=== PATIENT | female | born 1985 | race Caucasian/White ===

== ENCOUNTER 2017-05-31 16:49 | Emergency (ER) | payer MEDICAID ==
[2017-05-31 17:09] VITALS: BP 124/95
--- NOTE | 2017-05-31 18:41 | EDM.PDOC ---
ED HPI GENERAL MEDICAL PROBLEM - General Chief Complaint: General Stated Complaint: COUGH,CONGESTION,FREQUENT URINATION Time Seen by Provider: 05/31/17 16:55 Source of Information: Reports: Patient History Limitations: Reports: No Limitations - History of Present Illness INITIAL COMMENTS - FREE TEXT/NARRATIVE: The patient presents with cough, congestion, runny nose, fever, chills, and some dysuria. This started a few days ago. She has a daughter that is also sick. She has no chest pain, shortness of breath, nausea, vomiting, diarrhea or abdominal pain. She also has frequency of urination. Onset: Gradual Duration: Day(s): (3) Severity: Moderate Improves with: Reports: None Worsens with: Reports: None Associated Symptoms: Reports: Cough, Fever/Chills. 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: Reports: Concussion - Past Surgical History Neurological Surgical History: Reports: None Social & Family History - Family History Family Medical History: Noncontributory - Tobacco Use Smoking Status *Q: Never Smoker Years of Tobacco use: 10 Used Tobacco, but Quit: Yes Month Tobacco Last Used: unknown - Caffeine Use Caffeine Use: Reports: None - Alcohol Use Days Per Week of Alcohol Use: 0 - Recreational Drug Use Recreational Drug Use: No ED ROS GENERAL - Review of Systems Review Of Systems: See Below Constitutional: Reports: Fever, Chills HEENT: Reports: Other (Congestion and runny nose) Respiratory: Reports: Cough Cardiovascular: Reports: No Symptoms Endocrine: Reports: No Symptoms GI/Abdominal: Reports: No Symptoms : Reports: Dysuria, Frequency Musculoskeletal: Reports: No Symptoms ED EXAM, GENERAL - Physical Exam Exam: See Below Exam Limited By: No Limitations General Appearance: Alert, No Apparent Distress Ears: Normal External Exam Nose: Normal Inspection Throat/Mouth: Normal Inspection Head: Atraumatic, Normocephalic Neck: Normal Inspection Respiratory/Chest: No Respiratory Distress, Lungs Clear, Normal Breath Sounds Cardiovascular: Regular Rate, Rhythm, No Edema, No Murmur GI/Abdominal: Soft, Non-Tender, No Organomegaly, No Mass Back Exam: Normal Inspection Extremities: Normal Inspection Course - Vital Signs Last Recorded V/S: Last Vital Signs Temp 97.3 F 05/31/17 17:05 Pulse 108 H 05/31/17 17:05 Resp 16 05/31/17 17:05 BP 124/95 H 05/31/17 17:05 Pulse Ox 98 05/31/17 17:05 - Orders/Labs/Meds Labs: Laboratory Tests 05/31/17 Range/Units 17:54 Urine Color Yellow (Yellow) Urine Appearance Clear (Clear) Urine pH 6.0 (5.0-8.0) Ur Specific [place] 1.015 (1.005-1.030) Urine Protein Negative (Negative) Urine Glucose (UA) Negative (Negative) Urine Ketones 2+ H (Negative) Urine Occult Blood Negative (Negative) Urine Nitrite Negative (Negative) Urine Bilirubin Negative (Negative) Urine Urobilinogen 0.2 (0.2-1.0) Ur Leukocyte Esterase Trace H (Negative) Urine RBC 0-5 (0-5) /hpf Urine WBC 0-5 (0-5) /hpf Urine WBC Clumps Rare (NOT SEEN) /hpf Ur Epithelial Cells 0-5 (0-5) /hpf Urine Bacteria Few (FEW) /hpf Urine Mucus Not seen (FEW) /hpf - Re-Assessments/Exams Free Text/Narrative Re-Assessment/Exam: 05/31/17 19:05 Her influenza was negative. Her UA shows no UTI. I will discharge her home. Departure - Departure Time of Disposition: 19:10 Disposition: Home, Self-Care 01 Condition: Good Clinical Impression: Viral upper respiratory infection, Dysuria - Discharge Information Referrals: PCP,None [Primary Care Provider] - Alla Hartmann MD [Physician] - 1 Week Forms: ED Department Discharge Additional Instructions: Drink plenty of fluids. Take tylenol or motrin for fever or pain. You may also use some over the counter cold medicine. Please return if you are worse or follow up with Dr Queen.
== END 2017-05-31 19:10 | disposition home or self-care (01) ==
LOC: JD.ED 16:49
DX: J06.9 Acute upper respiratory infection, unspecified (principal); R30.0 Dysuria; Z79.899 Other long term (current) drug therapy; Z87.891 Personal history of nicotine dependence
CPT/HCPCS: 81001; 87804; 99282; 99283

== ENCOUNTER 2017-08-11 14:37 | Emergency (ER) | payer MEDICAID ==
[2017-08-11 14:57] VITALS: BP 138/102
[2017-08-11] MEDS ORDERED: Ondansetron 4 MG/2 ML SDV IVPUSH ONE (15:30)
[2017-08-11] MEDS ORDERED: Sodium Chloride 0.9% 1,000 ML IV ONE (15:30)
[2017-08-11] MEDS ORDERED: Sodium Chloride 0.9% 10 ML Syringe FLUSH PRN ×2 (15:30→19:31)
[2017-08-11] MEDS ORDERED: LORazepam 2 MG/ML SDV IVPUSH ONE (15:31)
--- NOTE | 2017-08-11 15:37 | EDM.PDOC ---
ED HPI GENERAL MEDICAL PROBLEM - General Chief Complaint: Genitourinary Problem Stated Complaint: LOW BACK PAIN/VERTIGO/NAUSEA Time Seen by Provider: 08/11/17 15:07 Source of Information: Reports: Patient History Limitations: Reports: No Limitations - History of Present Illness INITIAL COMMENTS - FREE TEXT/NARRATIVE: Patient is a 31-year-old female with a history of traumatic brain injury presents to the ED complaining of worsening dizziness with nausea and vomiting that started approximately 1:00 this morning. Patient awoke dizzy described as quite severe with nausea and vomiting. She has not been able to keep any foods or liquids down up until approximately 2 hours ago. In addition developed pain to the right low back described as sharp in nature that radiates to the front. Has difficulty in getting comfortable at times. Pain does wax and wane in intensity. There has been no recent fall or activity precipitating this. She has no history of kidney stones or gallbladder issues. There is no pain with urination. Nor has there been documented fever. She denies being and is currently on control. States she had a May of 2017. Up until recently she's been doing well. Of note there is another family member/ friends with similar symptoms that resolved. She's had no diarrhea or blood in her stool. history includes 1 para 1 miscarriage 0 abortions 2. Additional past medical history includes traumatic brain injury with migraines and persistent dizziness Current medications include meclizine and control. 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 - Past Surgical History Neurological Surgical History: Reports: None Social & Family History - Family History Family Medical History: Noncontributory - Tobacco Use Smoking Status *Q: Never Smoker Years of Tobacco use: 10 Used Tobacco, but Quit: Yes Month/Year Tobacco Last Used: unknown - Caffeine Use Caffeine Use: Reports: None - Alcohol Use Days Per Week of Alcohol Use: 0 - Recreational Drug Use Recreational Drug Use: Yes Drug Use in Last 12 Months: Yes Recreational Drug Type: Reports: Marijuana/Hashish ED ROS GENERAL - Review of Systems Review Of Systems: See Below Constitutional: Reports: Decreased Appetite. Denies: Fever, Chills HEENT: Reports: Vertigo. Denies: Ear Pain, Eye Pain, Nosebleed, Sinus Problem, Throat Pain, Throat Swelling, Vision Change Respiratory: Denies: Shortness of Breath, Wheezing, Pleuritic Chest Pain, Cough , Sputum, Hemoptysis Cardiovascular: Reports: No Symptoms GI/Abdominal: Reports: Abdominal Pain, Decreased Appetite, Nausea, Vomiting. Denies: Black Stool, Bloody Stool, Constipation, Diarrhea, Hematemesis, Hematochezia, Melena : Reports: Flank Pain (Right-sided). Denies: Discharge, Dysuria, Frequency, Hematuria, Pain, Urgency, Urinary Retention Musculoskeletal: Reports: Back Pain (Low right sided back pain) Skin: Reports: No Symptoms Neurological: Reports: Dizziness (Chronic with worsening symptoms as of late). Denies: Confusion, Headache, Numbness, Pre-Existing Deficit, Seizure, Syncope, Tingling, Difficulty Walking, Weakness Psychiatric: Denies: Anxiety ED EXAM, GI/ABD - Physical Exam Exam: See Below Exam Limited By: No Limitations General Appearance: Alert, WD/WN, No Apparent Distress Eyes: Bilateral: Normal Appearance, EOMI, Nystagmus (Mild horizontal bilaterally no vertical) Ears: Normal External Exam, Normal Canal, Hearing Grossly Normal, Normal TMs Nose: Normal Inspection, Normal Mucosa Throat/Mouth: Normal Inspection, Normal Oropharynx, Normal Voice, No Airway Compromise Head: Atraumatic, Normocephalic Neck: Normal Inspection, Supple, Non-Tender, Full Range of Motion. No: Lymphadenopathy (L), Lymphadenopathy (R) Respiratory/Chest: No Respiratory Distress, Lungs Clear, Normal Breath Sounds, Chest Non-Tender Cardiovascular: Normal Peripheral Pulses, Regular Rate, Rhythm, No Murmur GI/Abdominal Exam: Normal Bowel Sounds, Soft, Non-Tender, No Organomegaly, No Distention Back Exam: Normal Inspection, Other (Right lower back discomfort radiates to the right flank.). No: Paraspinal Tenderness, Vertebral Tenderness Neurological: Alert, Oriented, CN II-XII Intact, Normal Cognition, No Motor/ Sensory Deficits Psychiatric: Normal Affect, Normal Mood Skin Exam: Warm, Dry, Intact, Normal Color, No Rash Course - Vital Signs Last Recorded V/S: Last Vital Signs Temp 97.7 F 08/11/17 14:52 Pulse 106 H 08/11/17 14:52 Resp 17 08/11/17 14:52 BP 138/102 H 08/11/17 14:52 Pulse Ox 100 08/11/17 14:52 - Orders/Labs/Meds Orders: Active Orders 24 hr Category Date Time Status Peripheral IV Care [RC] . DIRECTED Care 08/11/17 15:30 Active HCG QUALITATIVE,URINE [URCHEM] Stat Lab 08/11/17 16:35 Ordered UA W/MICROSCOPIC [URIN] Stat Lab 08/11/17 16:35 Ordered Peripheral IV Insertion Adult [OM.PC] Routine Oth 08/11/17 15:30 Ordered Labs: Laboratory Tests 08/11/17 08/11/17 08/11/17 Range/Units 15:45 15:45 15:45 WBC 6.34 (3.98-10.04) K/mm3 RBC 4.76 (3.98-5.22) M/mm3 Hgb 14.2 (11.2-15.7) gm/L Hct 42.6 (34.1-44.9) % MCV 89.5 (79.4-94.8) fl MCH 29.8 (25.6-32.2) pg MCHC 33.3 (32.2-35.5) g/dl RDW Std Deviation 44.4 (36.4-46.3) fL Plt Count 221 (182-369) K/mm3 MPV 10.4 (9.4-12.3) fl Neut % (Auto) 86.5 H (34.0-71.1) % Lymph % (Auto) 8.7 L (19.3-51.7) % [place] % (Auto) 4.4 L (4.7-12.5) % Eos % (Auto) 0.2 L (0.7-5.8) Baso % (Auto) 0.2 (0.1-1.2) % Neut # (Auto) 5.49 (1.56-6.13) K/mm3 Lymph # (Auto) 0.55 L (1.18-3.74) K/mm3 [place] # (Auto) 0.28 (0.24-0.36) K/mm3 Eos # (Auto) 0.01 L (0.04-0.36) K/mm3 Baso # (Auto) 0.01 (0.01-0.08) K/mm3 Manual Slide Review Normal smear Sodium 139 (136-145) mEq/L Potassium 3.0 L (3.5-5.1) mEq/L Chloride 101 (98-107) mEq/L Carbon Dioxide 28 (21-32) mEq/L Anion Gap 13.0 (5-15) BUN 12 (7-18) mg/dL Creatinine 0.6 (0.55-1.02) mg/dL Est Cr Clr Drug Dosing 119.47 mL/min Estimated GFR (MDRD) > 60 (>60) mL/min BUN/Creatinine Ratio 20.0 H (14-18) Glucose 92 (74-106) mg/dL Calcium 8.7 (8.5-10.1) mg/dL Total Bilirubin 0.7 (0.2-1.0) mg/dL AST 30 (15-37) U/L ALT 50 (14-59) U/L Alkaline Phosphatase 42 L (46-116) U/L C-Reactive Protein 3.0 H* (<1.0) mg/dL Total Protein 7.1 (6.4-8.2) g/dl Albumin 4.1 (3.4-5.0) g/dl Globulin 3.0 gm/dL Albumin/Globulin Ratio 1.4 (1-2) HCG, Qual Negative (NEGATIVE) Urine Color (Yellow) Urine Appearance (Clear) Urine pH (5.0-8.0) Ur Specific [place] (1.005-1.030) Urine Protein (Negative) Urine Glucose (UA) (Negative) Urine Ketones (Negative) Urine Occult Blood (Negative) Urine Nitrite (Negative) Urine Bilirubin (Negative) Urine Urobilinogen (0.2-1.0) Ur Leukocyte Esterase (Negative) Urine RBC (0-5) /hpf Urine WBC (0-5) /hpf Ur Epithelial Cells (0-5) /hpf Urine Bacteria (FEW) /hpf Urine Mucus (FEW) /hpf Urine HCG, Qual (NEGATIVE) 04/19/18 04/19/18 Range/Units 16:35 16:35 WBC (3.98-10.04) K/mm3 RBC (3.98-5.22) M/mm3 Hgb (11.2-15.7) gm/L Hct (34.1-44.9) % MCV (79.4-94.8) fl MCH (25.6-32.2) pg MCHC (32.2-35.5) g/dl RDW Std Deviation (36.4-46.3) fL Plt Count (182-369) K/mm3 MPV (9.4-12.3) fl Neut % (Auto) (34.0-71.1) % Lymph % (Auto) (19.3-51.7) % [place] % (Auto) (4.7-12.5) % Eos % (Auto) (0.7-5.8) Baso % (Auto) (0.1-1.2) % Neut # (Auto) (1.56-6.13) K/mm3 Lymph # (Auto) (1.18-3.74) K/mm3 [place] # (Auto) (0.24-0.36) K/mm3 Eos # (Auto) (0.04-0.36) K/mm3 Baso # (Auto) (0.01-0.08) K/mm3 Manual Slide Review Sodium (136-145) mEq/L Potassium (3.5-5.1) mEq/L Chloride (98-107) mEq/L Carbon Dioxide (21-32) mEq/L Anion Gap (5-15) BUN (7-18) mg/dL Creatinine (0.55-1.02) mg/dL Est Cr Clr Drug Dosing mL/min Estimated GFR (MDRD) (>60) mL/min BUN/Creatinine Ratio (14-18) Glucose (74-106) mg/dL Calcium (8.5-10.1) mg/dL Total Bilirubin (0.2-1.0) mg/dL AST (15-37) U/L ALT (14-59) U/L Alkaline Phosphatase (46-116) U/L C-Reactive Protein (<1.0) mg/dL Total Protein (6.4-8.2) g/dl Albumin (3.4-5.0) g/dl Globulin gm/dL Albumin/Globulin Ratio (1-2) HCG, Qual (NEGATIVE) Urine Color Yellow (Yellow) Urine Appearance Clear (Clear) Urine pH 7.0 (5.0-8.0) Ur Specific [place] 1.015 (1.005-1.030) Urine Protein Negative (Negative) Urine Glucose (UA) Negative (Negative) Urine Ketones Negative (Negative) Urine Occult Blood Negative (Negative) Urine Nitrite Negative (Negative) Urine Bilirubin Negative (Negative) Urine Urobilinogen 0.2 (0.2-1.0) Ur Leukocyte Esterase Negative (Negative) Urine RBC 0-5 (0-5) /hpf Urine WBC Not seen (0-5) /hpf Ur Epithelial Cells 10-20 H (0-5) /hpf Urine Bacteria Not seen (FEW) /hpf Urine Mucus Not seen (FEW) /hpf Urine HCG, Qual Negative (NEGATIVE) Meds: Medications Discontinued Medications Generic Name Dose Route Start Last Admin Trade Name Freq PRN Reason Stop Dose Admin Diatrizoate Meglum/Diatrizoate Sod 90 ml 08/11/17 19:31 08/11/17 19:45 Gastrografin 37% PO 08/11/17 19:32 90 ml ONETIME ONE Administration Sodium Chloride 1,000 mls @ 999 mls/hr 08/11/17 15:30 08/11/17 15:52 Normal Saline IV 08/11/17 16:30 999 mls/hr ONETIME ONE Administration Potassium Chloride 10 meq/ 100 mls @ 100 mls/hr 08/11/17 16:44 08/11/17 17:25 Premix IV 08/11/17 17:43 100 mls/hr ASDIRECTED ONE Administration Potassium Chloride 10 meq/ 100 mls @ 100 mls/hr 08/11/17 16:44 08/11/17 18:24 Premix IV 08/11/17 17:43 100 mls/hr ONETIME ONE Administration Sodium Chloride Confirm 08/11/17 17:36 08/11/17 17:38 Normal Saline Administered 08/11/17 17:37 Not Given Dose 1,000 mls @ as directed .ROUTE .STK-MED ONE Sodium Chloride 1,000 mls @ 150 mls/hr 08/11/17 17:45 08/11/17 17:38 Normal Saline IV 150 mls/hr ASDIRECTED [place] Administration Iopamidol 125 ml 08/11/17 19:31 08/11/17 19:45 Isovue-300 (61%) IVPUSH 08/11/17 19:32 125 ml ONETIME ONE Administration Lorazepam 0.5 mg 08/11/17 15:31 08/11/17 15:49 Ativan IVPUSH 08/11/17 15:32 0.5 mg ONETIME ONE Administration Ondansetron HCl 4 mg 08/11/17 15:30 08/11/17 15:48 Zofran IVPUSH 08/11/17 15:31 4 mg ONETIME ONE Administration Potassium Chloride 40 meq 08/11/17 16:43 08/11/17 17:25 Klor-Con M20 PO 08/11/17 16:44 40 meq ONETIME ONE Administration Sodium Chloride 10 ml 08/11/17 15:30 08/11/17 15:45 Saline Flush FLUSH 10 ml ASDIRECTED PRN Administration Keep Vein Open Sodium Chloride 10 ml 08/11/17 19:31 08/11/17 19:46 Saline Flush FLUSH 10 ml ONETIME PRN Administration IV Flush - Re-Assessments/Exams Free Text/Narrative Re-Assessment/Exam: Ordered peripheral IV with normal saline 999 ml per hour, Ativan 0.5 mg IVP, and Zofran 4 mg IVP. Initial labs and studies will include CBC, chem 14, CRP, UA, hCG, and 2 view of the abdomen. Labs reviewed: White blood cell count 6.34, hemoglobin 14.2, platelet count 221 , sodium 139, potassium 3.0, AG 13.0, creatinine 0.6, glucose 92, alk phosphatase 42, CRP 3.0. UA has not been obtained. Cancel urine hCG and ordered serum hCG. Ordered potassium 40 mEq's by mouth and 20 mEq's IV. Will wait for results of hCG and then proceed with CT abdomen and pelvis with IV contrast only. HCG was negative. Discussed results with patient. She is requesting CT Abdomen/ Pelvis. On reevaluation patient has pain to the right flank and along mcburneys point. Ordered CT of the abdomen/pelvis. CT was delayed since oral contrast was not administered in timely fashion causing patient to exceed the 4 hr 28 minute goal for disposition. 08/11/17 20:26 CT abdomen and pelvis impression: Findings which are felt to be incidental as noted above. Nothing acute is appreciated on CT study of the abdomen and pelvis. We'll discharge patient home with instructions as documented. Departure - Departure Time of Disposition: 20:26 Disposition: Home, Self-Care 01 Clinical Impression: Hypokalemia Abdominal pain Qualifiers: Abdominal location: unspecified location Qualified Code(s): R10.9 - Unspecified abdominal pain - Discharge Information Prescriptions: Ondansetron [Zofran ODT] 4 mg PO Q6H PRN #12 tab.dis PRN Reason: Nausea/Vomiting Potassium Chloride [Klor-Con M20] 20 meq PO QAM #30 tab.er Instructions: Hypokalemia, Abdominal Pain, Adult, [id number], Flank Pain, [id number] Forms: ED Department Discharge Additional Instructions: CT the abdomen and pelvis did not reveal any concerning findings. Lab work revealed potassium level was low. You received potassium supplementation while in the ED. Will have you take potassium 20 mEq daily one tab every morning. For n/v take zofran 4mg ODT every 6 hrs. See her primary care provider this coming week for repeat labs and reevaluation. Return to the ED if you develop any new or worsening symptoms. - My Orders Last 24 Hours: My Active Orders 08/11/17 15:30 Peripheral IV Care [RC] . DIRECTED Peripheral IV Insertion Adult [OM.PC] Routine 08/11/17 16:35 HCG QUALITATIVE,URINE [URCHEM] Stat UA W/MICROSCOPIC [URIN] Stat - Assessment/Plan Last 24 Hours: My Active Orders 08/11/17 15:30 Peripheral IV Care [RC] . DIRECTED Peripheral IV Insertion Adult [OM.PC] Routine 08/11/17 16:35 HCG QUALITATIVE,URINE [URCHEM] Stat UA W/MICROSCOPIC [URIN] Stat
[2017-08-11] MEDS ORDERED: Potassium Chloride 20 MEQ Tab.ER PO ONE (16:43)
[2017-08-11] MEDS ORDERED: Potassium Chloride 10 MEQ in Premix Bag 1 BAG IV ONE ×4 (16:44)
[2017-08-11] MEDS ORDERED: Sodium Chloride 0.9% 1,000 ML ONE (17:36)
[2017-08-11] MEDS ORDERED: Sodium Chloride 0.9% 1,000 ML IV SCH (17:45)
[2017-08-11] MEDS ORDERED: Diatrizoate Meglumine/Diatrizoate Sodium 37% 120 ML Bottle PO ONE (19:31)
[2017-08-11] MEDS ORDERED: Iopamidol 612 MG/ML 150 ML Bottle IVPUSH ONE (19:31)
--- NOTE | 2017-08-11 20:18 | CT ---
CT abdomen and pelvis Technique: Multiple axial sections were obtained from above the dome of the diaphragm inferiorly through the pubic symphysis. Intravenous and oral contrast was utilized. Delayed images were also obtained through the bladder. Findings: Appendix is seen which appears normal in size measuring 6 mm. Cyst is noted within the right ovary which is felt to be physiologic measuring 2.5 cm. Minimal free fluid seen is within the pelvis also felt to be physiologic. Visualized lung bases are clear. Liver shows no focal parenchymal abnormality. Spleen appears within normal limits. Gallbladder contains no calcified gallstones. Adrenal glands show no nodule. Kidneys show symmetric contrast enhancement without hydronephrosis or mass. Delayed images shows contrast within the distal ureters and within the bladder. Aorta shows no aneurysmal dilatation. No retroperitoneal adenopathy or mesenteric abnormalities are seen. No bowel dilatation or bowel obstruction is seen. Impression: 1. Findings which are felt to be incidental as noted above. Nothing acute is appreciated on CT study of the abdomen and pelvis. Diagnostic code #1
--- NOTE | 2017-08-12 08:06 | CR ---
Abdomen: Supine and upright views of the abdomen were obtained. Comparison: No previous study. Bowel gas pattern appears normal. No abnormal calcifications or soft tissue abnormality is seen. No free air is identified. Bony structures are unremarkable. No abnormal calcifications are seen. Impression: 1. Unremarkable two-view abdominal x-ray. Diagnostic code #1
== END 2017-08-11 20:36 | disposition home or self-care (01) ==
LOC: JD.ED 14:37
DX: E87.6 Hypokalemia (principal); R10.9 Unspecified abdominal pain; Z87.891 Personal history of nicotine dependence
CPT/HCPCS: 36415; 74019; 74177; 80053; 81001; 81025; 84703; 85025; 86140; 96361; 96365; 96366; 96375; 99284; A9270; J2060; J2405; J3480; J7040; J7050; Q9963; Q9967

== ENCOUNTER 2018-05-03 09:00 | Emergency (ER) | payer MEDICAID ==
[2018-05-03] MEDS ORDERED: predniSONE 20 MG Tab PO ONE (09:45)
[2018-05-03] MEDS ORDERED: Ondansetron 4 MG Tab.DIS PO ONE (09:45)
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
[2018-05-03 10:31] VITALS: BP 119/90
== END 2018-05-03 10:25 | disposition home or self-care (01) ==
LOC: JD.ED 09:00
DX: H83.09 Labyrinthitis, unspecified ear (principal); Z87.891 Personal history of nicotine dependence
CPT/HCPCS: 99284; A9270; 99283